=== PATIENT | male | born 1965 | race African-American/Black ===

== ENCOUNTER 2019-05-13 19:13 | Inpatient (IN) | payer MEDICAID ==
[~2019-05-13] VITALS: Ht 172.7 cm; Wt 48.6 kg
[2019-05-13] MEDS ORDERED: SODIUM CHLORIDE 0.9% 1000ML BAG (SEPSIS BOLUS) IV ONE (22:30)
[2019-05-13 23:04] LABS: BASOPHILS % 0.6 % (0.0-2.0); EOSINOPHILS % 0.4 % (0.0-5.0); HEMATOCRIT. 31.2 % (42.0-52.0); HEMOGLOBIN. 10.6 g/dL (14.0-18.0); MEAN CORPUSCULAR HEMOGLOBIN 28.3 pg (28.0-32.0); MEAN CORPUSCULAR VOLUME 83.4 fL (80.0-94.0); MEAN PLATELET VOLUME 7.4 fl (7.4-10.4); MONOCYTES % 11.4 % (2.0-8.0); NEUTROPHILS % 79.6 % (40.0-76.0); PLATELET 753 x1000/uL (130-400); RED BLOOD CELL COUNT 3.74 mill/uL (4.7-6.1); RED CELL DISTRIBUTION WIDTH 14.9 % (11.6-14.6)
[2019-05-13 23:08] LABS: CHLORIDE 101 mEq/L (98-107)
[2019-05-13 23:12] LABS: INR 1.2; PARTIAL THROMBOPLASTIN TIME 43.7 sec (23.4-31.0)
[2019-05-14] VITALS (9 sets, daily range): BP systolic 70–195; BP diastolic 37–115
[2019-05-14 00:15] LABS: CLARITY URINE CLOUDY (CLEAR); COLOR URINE YELLOW (YELLOW); KETONES URINE 1+ (NEGATIVE); LEUKOCYTE ESTERASE URINE 2+ (NEGATIVE); NITRITE URINE POSITIVE (NEGATIVE); OCCULT BLOOD URINE NEGATIVE (NEGATIVE); PROTEIN URINE TRACE (NEGATIVE); SPECIFIC GRAVITY URINE 1.011 (1.005-1.030); UROBILINOGEN URINE 0.2 E.U./dL (0.2-1.0)
[2019-05-14] MEDS ORDERED: CEFTRIAXONE 1 G PREMIX 50 ML IV SCH (00:42)
[2019-05-14] MEDS ORDERED: SENN8.8S8 PO (03:46)
[2019-05-14] MEDS ORDERED: DOCU-138 PO (03:47)
[2019-05-14] MEDS ORDERED: BACL20TA PO (03:48)
[2019-05-14] MEDS ORDERED: CLON0.252 PO (03:51)
[2019-05-14] MEDS ORDERED: OXYB5TAB11 PO (03:51)
[2019-05-14] MEDS ORDERED: MORPHINE SULFATE 2 MG/ML CPJ (NOT FOR IM USE) IV PRN ×2 (04:30→08:30)
[2019-05-14] MEDS ORDERED: ACETAMINOPHEN 325MG TABLET PO PRN (06:30)
[2019-05-14] MEDS: SODIUM CHLORIDE 0.9% 1,000 ML IV SCH ×2 (06:31→17:20)
[2019-05-14 11:09] LABS: BASOPHILS % 0.7 % (0.0-2.0); EOSINOPHILS % 0.5 % (0.0-5.0); HEMATOCRIT. 29.5 % (42.0-52.0); HEMOGLOBIN. 10.1 g/dL (14.0-18.0); LYMPHOCYTES % 9.7 % (20.0-50.0); MEAN CORPUSCULAR HEMOGLOBIN 28.5 pg (28.0-32.0); MEAN CORPUSCULAR VOLUME 83.5 fL (80.0-94.0); MEAN PLATELET VOLUME 7.7 fl (7.4-10.4); NEUTROPHILS % 75.1 % (40.0-76.0); PLATELET 777 x1000/uL (130-400); RED BLOOD CELL COUNT 3.54 mill/uL (4.7-6.1); RED CELL DISTRIBUTION WIDTH 14.9 % (11.6-14.6)
[2019-05-14 11:46] LABS: CHLORIDE 103 mEq/L (98-107)
[2019-05-14] MEDS ORDERED: POTASSIUM CHLORIDE 20MEQ TABLET SR PO NR (15:00)
[2019-05-14] MEDS ORDERED: DIATR MEGLU/DIATRIZOATE SOLN 30ML PO SCH (15:15)
[2019-05-14] MEDS ORDERED: OXYBUTYNIN CHLORIDE 5MG TABLET PO SCH ×2 (16:00→17:00)
[2019-05-14] MEDS ORDERED: DET2 PO (16:07)
[2019-05-14] MEDS: DOCUSATE SODIUM 100MG CAPSULE PO SCH (16:47)
[2019-05-14] MEDS: BACLOFEN 10MG TABLET PO SCH (16:48)
[2019-05-14] MEDS: ENOXAPARIN 40MG/0.4ML SYR SUBCUT SCH (16:49)
[2019-05-14] MEDS: MORPHINE SULFATE 2 MG/ML CPJ (NOT FOR IM USE) IV PRN ×2 (16:51→22:09)
[2019-05-14] MEDS ORDERED: CLONIDINE 0.1MG TABLET PO PRN (17:15)
[2019-05-14] MEDS ORDERED: TOLTERODINE TARTRATE 4 MG PO SCH (21:00)
[2019-05-14] MEDS: AMLODIPINE 5MG TABLET PO SCH (21:00)
[2019-05-14] MEDS ORDERED: HYDROCODONE/ACETAMINOPHEN 5/325MG TABLET PO PRN (21:30)
[2019-05-14] MEDS: CLONAZEPAM 0.5MG TABLET PO SCH (22:06)
[2019-05-14] MEDS ORDERED: GABA-531 MT (22:09)
[2019-05-14] MEDS ORDERED: NON FORMULARY PATIENT HOME MED XX SCH (23:00)
[2019-05-14] MEDS: GABAPENTIN 300MG CAPSULE PO SCH (23:06)
[2019-05-15] VITALS (10 sets, daily range): BP systolic 63–170; BP diastolic 30–106
[2019-05-15] MEDS: CEFTRIAXONE 1 G PREMIX 50 ML IV SCH (01:51)
[2019-05-15] MEDS: SODIUM CHLORIDE 0.9% 1,000 ML IV SCH ×3 (02:08→22:37)
[2019-05-15 06:58] LABS: HEMATOCRIT. 26.9 % (42.0-52.0); HEMOGLOBIN. 9.1 g/dL (14.0-18.0); MEAN CORPUSCULAR HEMOGLOBIN 28.3 pg (28.0-32.0); MEAN CORPUSCULAR VOLUME 83.9 fL (80.0-94.0); MEAN PLATELET VOLUME 7.4 fl (7.4-10.4); PLATELET 690 x1000/uL (130-400); RED BLOOD CELL COUNT 3.21 mill/uL (4.7-6.1); RED CELL DISTRIBUTION WIDTH 14.7 % (11.6-14.6)
[2019-05-15] MEDS: OXYBUTYNIN CHLORIDE 5MG TABLET PO SCH ×4 (08:15→16:15)
[2019-05-15] MEDS: DOCUSATE SODIUM 100MG CAPSULE PO SCH ×2 (08:15→16:16)
[2019-05-15] MEDS: GABAPENTIN 300MG CAPSULE PO SCH ×3 (08:15→16:14)
[2019-05-15] MEDS: BACLOFEN 10MG TABLET PO SCH ×3 (08:15→16:13)
[2019-05-15] MEDS: AMLODIPINE 5MG TABLET PO SCH ×2 (08:16→21:00)
[2019-05-15 08:18] LABS: CHLORIDE 107 mEq/L (98-107)
[2019-05-15] MEDS: MORPHINE SULFATE 2 MG/ML CPJ (NOT FOR IM USE) IV PRN ×2 (08:22→23:55)
[2019-05-15] MEDS ORDERED: DIATR MEGLU/DIATRIZOATE SOLN 30ML PO NR (09:15)
[2019-05-15] MEDS ORDERED: SODIUM CHLORIDE 0.9% 500 ML IV ONE ×2 (09:48→12:00)
[2019-05-15 11:38] LABS: PLATELET ESTIMATE INCREASED
[2019-05-15] MEDS ORDERED: MIDODRINE HCL 5MG TABLET PO NR (11:45)
[2019-05-15] MEDS: MIDODRINE HCL 5MG TABLET PO SCH ×2 (12:59→16:15)
[2019-05-15] MEDS ORDERED: LACTULOSE 20G/30ML UDC PO NR (15:30)
[2019-05-15] MEDS: ENOXAPARIN 40MG/0.4ML SYR SUBCUT SCH (16:18)
[2019-05-15] MEDS: TOLTERODINE 4 MG PO SCH (21:41)
[2019-05-15] MEDS: CLONAZEPAM 0.5MG TABLET PO SCH (21:42)
[2019-05-16] MEDS: CEFTRIAXONE 1 G PREMIX 50 ML IV SCH (01:53)
[2019-05-16 02:00] VITALS: BP 100/50
[2019-05-16 04:00] VITALS: BP 114/84
[2019-05-16 06:10] LABS: BASOPHILS % 0.7 % (0.0-2.0); EOSINOPHILS % 3.5 % (0.0-5.0); HEMATOCRIT. 27.3 % (42.0-52.0); HEMOGLOBIN. 9.2 g/dL (14.0-18.0); LYMPHOCYTES % 17.8 % (20.0-50.0); MEAN CORPUSCULAR HEMOGLOBIN 28.2 pg (28.0-32.0); MEAN CORPUSCULAR VOLUME 83.7 fL (80.0-94.0); MEAN PLATELET VOLUME 8.5 fl (7.4-10.4); MONOCYTES % 10.4 % (2.0-8.0); NEUTROPHILS % 67.6 % (40.0-76.0); PLATELET 573 x1000/uL (130-400); RED BLOOD CELL COUNT 3.27 mill/uL (4.7-6.1); RED CELL DISTRIBUTION WIDTH 15.3 % (11.6-14.6)
[2019-05-16 06:35] LABS: CHLORIDE 109 mEq/L (98-107)
[2019-05-16] MEDS: MORPHINE SULFATE 2 MG/ML CPJ (NOT FOR IM USE) IV PRN ×2 (06:41→18:08)
[2019-05-16 08:00] VITALS: BP 94/55
[2019-05-16] MEDS: AMLODIPINE 5MG TABLET PO SCH ×2 (09:00→20:38)
[2019-05-16] MEDS: BACLOFEN 10MG TABLET PO SCH ×3 (09:05→17:25)
[2019-05-16] MEDS: DOCUSATE SODIUM 100MG CAPSULE PO SCH ×2 (09:05→17:25)
[2019-05-16] MEDS: GABAPENTIN 300MG CAPSULE PO SCH ×3 (09:05→17:25)
[2019-05-16] MEDS: MIDODRINE HCL 5MG TABLET PO SCH ×3 (09:06→17:00)
[2019-05-16] MEDS: OXYBUTYNIN CHLORIDE 5MG TABLET PO SCH (09:07)
[2019-05-16] MEDS: SODIUM CHLORIDE 0.9% 1,000 ML IV SCH ×2 (09:07→17:26)
[2019-05-16 12:00] VITALS: BP 159/95
[2019-05-16] MEDS: SENNOSIDES/DOCUSATE SOD 8.6/50MG TABLET PO PRN (13:14)
[2019-05-16] MEDS ORDERED: BISACODYL 5MG TABLET PO NR (14:15)
[2019-05-16] MEDS ORDERED: SORBITOL 70% SOLN 30ML PO NR (14:15)
[2019-05-16 16:00] VITALS: BP 143/98
[2019-05-16] MEDS: ENOXAPARIN 40MG/0.4ML SYR SUBCUT SCH (17:25)
[2019-05-16 20:00] VITALS: BP 123/83
[2019-05-16] MEDS: CLONAZEPAM 0.5MG TABLET PO SCH (20:38)
[2019-05-16] MEDS: TOLTERODINE 4 MG PO SCH (20:39)
[2019-05-17] VITALS: BP 94/59
[2019-05-17] MEDS: CEFTRIAXONE 1 G PREMIX 50 ML IV SCH (01:24)
[2019-05-17] MEDS: MORPHINE SULFATE 2 MG/ML CPJ (NOT FOR IM USE) IV PRN ×3 (03:13→14:14)
[2019-05-17 04:00] VITALS: BP 139/90
[2019-05-17 08:00] VITALS: BP 118/95
[2019-05-17] MEDS: MIDODRINE HCL 5MG TABLET PO SCH ×3 (09:00→17:28)
[2019-05-17] MEDS: BACLOFEN 10MG TABLET PO SCH ×3 (10:21→17:28)
[2019-05-17] MEDS: GABAPENTIN 300MG CAPSULE PO SCH ×3 (10:22→17:29)
[2019-05-17] MEDS: OXYBUTYNIN CHLORIDE 5MG TABLET PO SCH (10:22)
[2019-05-17] MEDS: AMLODIPINE 5MG TABLET PO SCH ×2 (10:22→21:39)
[2019-05-17] MEDS: DOCUSATE SODIUM 100MG CAPSULE PO SCH ×2 (10:22→17:28)
[2019-05-17 12:00] VITALS: BP 85/56
[2019-05-17 12:02] LABS: BASOPHILS % 0.8 % (0.0-2.0); EOSINOPHILS % 1.1 % (0.0-5.0); HEMATOCRIT. 27.9 % (42.0-52.0); HEMOGLOBIN. 9.8 g/dL (14.0-18.0); LYMPHOCYTES % 7.6 % (20.0-50.0); MEAN CORPUSCULAR VOLUME 82.7 fL (80.0-94.0); MEAN PLATELET VOLUME 7.2 fl (7.4-10.4); MONOCYTES % 10.4 % (2.0-8.0); NEUTROPHILS % 80.1 % (40.0-76.0); PLATELET 638 x1000/uL (130-400); RED BLOOD CELL COUNT 3.37 mill/uL (4.7-6.1); RED CELL DISTRIBUTION WIDTH 15.3 % (11.6-14.6)
[2019-05-17 12:18] LABS: CHLORIDE 108 mEq/L (98-107)
[2019-05-17] MEDS: SODIUM CHLORIDE 0.9% 1,000 ML IV SCH (12:18)
[2019-05-17] MEDS ORDERED: SORBITOL 70% SOLN 30ML PO NR (15:30)
[2019-05-17 16:00] VITALS: BP_SYST 89; BP_SYST 94; BP_SYST 98; BP_DIAS 38; BP_DIAS 40; BP_DIAS 47
[2019-05-17] MEDS ORDERED: MIDO5TAB MT (16:43)
[2019-05-17] MEDS: ENOXAPARIN 40MG/0.4ML SYR SUBCUT SCH (17:29)
[2019-05-17 19:22] LABS: *AMPHETAMINES SCREEN URINE NEGATIVE (NEGATIVE); *BARBITURATES SCREEN URINE NEGATIVE (NEGATIVE)
[2019-05-17 19:23] LABS: *BENZODIAZEPINES SCREEN URINE NEGATIVE (NEGATIVE); *COCAINE SCREEN URINE NEGATIVE (NEGATIVE); METHADONE URINE SCREEN NEGATIVE (NEGATIVE); OPIATES URINE SCREEN PRESUMTIVE POSITIVE (NEGATIVE); PHENCYCLIDINE URINE SCREEN NEGATIVE (NEGATIVE)
[2019-05-17 19:24] LABS: CANNABINOID URINE SCREEN NEGATIVE (NEGATIVE)
[2019-05-17 20:00] VITALS: BP 122/78
[2019-05-17] MEDS ORDERED: MORPHINE SULFATE 4 MG/ML CPJ (NOT FOR IM USE) IV PRN (21:34)
[2019-05-17] MEDS: TOLTERODINE 4 MG PO SCH (21:39)
[2019-05-17] MEDS: CLONAZEPAM 0.5MG TABLET PO SCH (21:39)
[2019-05-18 00:11] VITALS: BP 119/84
[2019-05-18] MEDS: CEFTRIAXONE 1 G PREMIX 50 ML IV SCH (02:42)
[2019-05-18] MEDS: MORPHINE SULFATE 2 MG/ML CPJ (NOT FOR IM USE) IV PRN ×3 (02:48→14:58)
[2019-05-18 04:00] VITALS: BP 122/91
[2019-05-18] MEDS: SODIUM CHLORIDE 0.9% 1,000 ML IV SCH (06:28)
[2019-05-18 08:00] VITALS: BP 126/81
[2019-05-18] MEDS: MIDODRINE HCL 5MG TABLET PO SCH ×3 (09:00→17:06)
[2019-05-18] MEDS: DOCUSATE SODIUM 100MG CAPSULE PO SCH ×2 (09:24→17:06)
[2019-05-18] MEDS: GABAPENTIN 300MG CAPSULE PO SCH ×3 (09:25→17:06)
[2019-05-18] MEDS: AMLODIPINE 5MG TABLET PO SCH (09:25)
[2019-05-18] MEDS: BACLOFEN 10MG TABLET PO SCH ×3 (09:25→17:06)
[2019-05-18] MEDS: OXYBUTYNIN CHLORIDE 5MG TABLET PO SCH (09:25)
[2019-05-18 12:00] VITALS: BP 92/59
[2019-05-18] MEDS ORDERED: SORBITOL 70% SOLN 30ML PO SCH (14:00)
[2019-05-18] MEDS: SENNOSIDES/DOCUSATE SOD 8.6/50MG TABLET PO PRN (14:57)
[2019-05-18 16:00] VITALS: BP 94/57
[2019-05-18] MEDS ORDERED: BISACODYL 5MG TABLET PO SCH (16:45)
[2019-05-18] MEDS ORDERED: SIMETHICONE 80MG TABLET CHEW PO PRN (16:45)
[2019-05-18] MEDS ORDERED: POTASSIUM CHLORIDE 20MEQ TABLET SR PO SCH (16:45)
[2019-05-18] MEDS: ENOXAPARIN 40MG/0.4ML SYR SUBCUT SCH (17:08)
[2019-05-18 18:20] VITALS: BP 78/49
== END 2019-05-18 19:24 | disposition home health service (06) | DRG 720 ==
LOC: ER 19:27 → 6WST 05-14 00:54 → EDBEDREQ 05-14 01:05 → EDBEDREQTM 05-14 01:05 → EDBEDREQDT 05-14 01:05 → EDBEDREQSVC 05-14 01:05 → ENRESERV 05-14 02:18
PROVIDERS: ADMIT Internal Medicine Nephrology; ATTEND Internal Medicine Nephrology
DX: A41.9 Sepsis, unspecified organism (principal); G82.50 Quadriplegia, unspecified; E44.0 Moderate protein-calorie malnutrition; G90.4 Autonomic dysreflexia; D64.9 Anemia, unspecified; S30.91XA Unspecified superficial injury of lower back and pelvis, initial encounter; N39.0 Urinary tract infection, site not specified; X58.XXXA Exposure to other specified factors, initial encounter; Z98.1 Arthrodesis status; Z79.899 Other long term (current) drug therapy; Z93.3 Colostomy status; Y93.89 Activity, other specified; Y92.89 Other specified places as the place of occurrence of the external cause; Y99.8 Other external cause status; Z68.1 Body mass index [BMI] 19.9 or less, adult
CPT/HCPCS: 36415; 70544; 70553; 71045; 74018; 74176; 76770; 80048; 80305; 80320; 81003; 83605; 84145; 84484; 87077; 87186; 87804; 93005; 99291; A6261; C1893; J0696; J1650; J2270; J7030; J7040; Q9963; A4315; G0480